=== PATIENT | male | born 1955 | race Two or more races ===

== ENCOUNTER 2023-06-19 12:45 | Inpatient (IN) | payer OTHER ==
[~2023-06-19] VITALS: Ht 180.3 cm; Wt 98.0 kg
[2023-06-19] MEDS ORDERED: LOSARTAN-HCTZ1 EAC2 PO (14:24)
[2023-06-19] MEDS ORDERED: NORVASC10 MG PO (14:24)
[2023-07-02] MEDS ORDERED: METRONIDAZOLE/SODIUM CHLORIDE 500 MG/100 ML PIGGYBACK IV ONE ×2 (07:25→07:27)
[2023-07-02] MEDS ORDERED: BUPIVACAINE HCL/PF 0.5% 30ML ML ONE (07:25)
[2023-07-02] MEDS ORDERED: CEFTRIAXONE SODIUM 2,000 MG VIAL ONE (07:26)
[2023-07-02] MEDS ORDERED: LIDOCAINE HCL/EPINEPHRINE 10MG/ML 1% 50ML IJ ONE (07:26)
[2023-07-02] MEDS ORDERED: LIDOCAINE HCL 1%/Epi 20ML VIAL IJ ONE ×2 (07:29→09:15)
[2023-07-02] MEDS ORDERED: POVIDONE-IODINE 118 ML BOTT TOP ONE ×2 (08:00→09:15)
[2023-07-02] MEDS ORDERED: METRONIDAZOLE/SODIUM CHLORIDE 200 ML IV ONE (09:15)
[2023-07-02] MEDS ORDERED: BUPIVACAINE HCL/PF 0.5% 30ML ML IU ONE (09:15)
[2023-07-02] MEDS ORDERED: CEFTRIAXONE SODIUM 2,000 MG in 0.9 % SODIUM CHLORIDE 50 ML IV ONE (09:15)
[2023-07-02] MEDS ORDERED: SUGAMMADEX SODIUM 200 MG/2 ML VIAL IV ONE ×2 (13:31→13:45)
[2023-07-02] MEDS ORDERED: RINGERS SOLUTION,LACTATED 1,000 ML IV SCH (14:15)
[2023-07-02] MEDS ORDERED: OxyCODONE HCL 5 MG TABLET (ROXICODONE) PO PRN (14:15)
[2023-07-02] MEDS ORDERED: INSULIN LISPRO 300 UNIT/3 ML UNITS SUBCUTANEO PRN (14:15)
[2023-07-02] MEDS ORDERED: DEXTROSE 50 % IN WATER 0.5 G/ML DISP.SYRIN IV PRN (14:15)
[2023-07-02] MEDS ORDERED: ONDANSETRON HCL 2 MG/ML VIAL IV PRN (14:15)
[2023-07-02] MEDS ORDERED: MORPHINE SULFATE 4 MG/ML CARTRIDGE IV PRN (14:15)
[2023-07-02 15:37] LABS: HEMATOCRIT 38.4 % (39.0-48.0); HEMOGLOBIN 13.1 g/dL (13-16.00); MEAN CELL VOLUME 83.9 fL (80.0-100.00); MEAN CORPUSCULAR HEMOGLOBIN 28.8 pg (27.00-32.0); MEAN CORPUSCULAR HGB CONC 34.3 g/dl (32.0-36.0); PLATELET COUNT 195 K/uL (150-450); RED BLOOD COUNT 4.57 M/uL (4.00-6.00); RED CELL DISTRIBUTION WIDTH 15.2 % (11.5-14.5)
[2023-07-02 16:13] LABS: ALBUMIN 3.7 gm/dL (3.4-5.0); CALCIUM 8.9 mg/dL (8.5-10.1); CREATININE SERUM 1.4 mg/dL (0.70-1.30); GFR 50.55; MAGNESIUM 1.9 mg/dL (1.8-2.4); POTASSIUM 4.07 mEq/L (3.5-5.1)
[2023-07-02] MEDS ORDERED: HYOSCYAMINE SULFATE 0.125 MG TAB.SUBL SL SCH (17:00)
[2023-07-02] MEDS ORDERED: GABAPENTIN 300 MG CAPSULE PO SCH (17:00)
[2023-07-02] MEDS ORDERED: POLYETHYLENE GLYCOL 3350 17 GM BLIST.PACK PO SCH (17:00)
[2023-07-02] MEDS ORDERED: TAMSULOSIN HCL 0.4 MG CAP PO SCH (17:00)
[2023-07-02] MEDS ORDERED: GABAPENTIN 300 MG CAPSULE PO ONE (17:09)
[2023-07-02] MEDS ORDERED: HYOSCYAMINE SULFATE 0.125 MG TAB.SUBL ONE (17:09)
[2023-07-02] MEDS ORDERED: TAMSULOSIN HCL 0.4 MG CAP PO ONE (17:09)
[2023-07-02] MEDS ORDERED: ENALAPRILAT DIHYDRATE 1.25 MG/ML VIAL IV PRN (18:30)
[2023-07-02] MEDS ORDERED: ACETAMINOPHEN 500 MG GEL..CAP PO SCH (20:00)
[2023-07-02] MEDS ORDERED: CELECOXIB 200 MG CAPSULE PO SCH (21:00)
[2023-07-02] MEDS ORDERED: FAMOTIDINE/PF 20 MG/2 ML VIAL IV PUSH SCH (21:00)
[2023-07-03 06:15] LABS: HEMATOCRIT 33.4 % (39.0-48.0); HEMOGLOBIN 11.7 g/dL (13-16.00); MEAN CELL VOLUME 82.3 fL (80.0-100.00); MEAN CORPUSCULAR HEMOGLOBIN 28.8 pg (27.00-32.0); PLATELET COUNT 153 K/uL (150-450); RED BLOOD COUNT 4.06 M/uL (4.00-6.00); RED CELL DISTRIBUTION WIDTH 15.1 % (11.5-14.5)
[2023-07-03 06:36] LABS: CALCIUM 7.9 mg/dL (8.5-10.1); CREATININE SERUM 1.04 mg/dL (0.70-1.30); GFR 71.23; MAGNESIUM 1.5 mg/dL (1.8-2.4); PHOSPHOROUS 3.2 mg/dL (2.5-4.9); POTASSIUM 3.81 mEq/L (3.5-5.1)
[2023-07-03] MEDS ORDERED: LOSARTAN/HYDROCHLOROTHIAZIDE 1 UDTAB TABLET PO SCH (09:00)
[2023-07-03] MEDS ORDERED: SOD FERRIC GLUC COMPLX/SUCROSE 62.5 MG in 0.9 % SODIUM CHLORIDE 50 ML IV SCH (09:16)
[2023-07-03] MEDS ORDERED: Cyanocobalamin/Mecobalamin 1 TAB.SL SL SCH (09:16)
[2023-07-03] MEDS ORDERED: MAGNESIUM SULFATE IN WATER 50 ML IV ONE (10:25)
[2023-07-03] MEDS ORDERED: ENOXAPARIN SODIUM 40 MG/0.4 ML SYRINGE SUBCUTANEO SCH (17:00)
[2023-07-03] MEDS ORDERED: AMLODIPINE BESYLATE 10 MG TABLET PO SCH (17:00)
[2023-07-04 06:15] LABS: HEMATOCRIT 33.2 % (39.0-48.0); HEMOGLOBIN 11.2 g/dL (13-16.00); MEAN CELL VOLUME 82.8 fL (80.0-100.00); MEAN CORPUSCULAR HGB CONC 33.9 g/dl (32.0-36.0); PLATELET COUNT 159 K/uL (150-450); RED BLOOD COUNT 4.01 M/uL (4.00-6.00); RED CELL DISTRIBUTION WIDTH 15.7 % (11.5-14.5)
[2023-07-04 06:50] LABS: CALCIUM 8.7 mg/dL (8.5-10.1); CREATININE SERUM 1.4 mg/dL (0.70-1.30); GFR 50.55; MAGNESIUM 3.1 mg/dL (1.8-2.4); PHOSPHOROUS 2.5 mg/dL (2.5-4.9); POTASSIUM 3.86 mEq/L (3.5-5.1)
[2023-07-04] MEDS ORDERED: ENOXAPARIN SODIUM 40 MG/0.4 ML SYRINGE SUBCUTANEO SCH (09:00)
[2023-07-04] MEDS ORDERED: PANTOPRAZOLE SODIUM 40 MG/VIAL VIAL IV STA (11:04)
[2023-07-04] MEDS ORDERED: PANTOPRAZOLE SODIUM 80 MG in 0.9 % SODIUM CHLORIDE 100 ML IV SCH (11:15)
[2023-07-04 12:49] LABS: HEMATOCRIT 34.9 % (39.0-48.0); HEMOGLOBIN 11.8 g/dL (13-16.00); MEAN CELL VOLUME 83.2 fL (80.0-100.00); MEAN CORPUSCULAR HEMOGLOBIN 28.2 pg (27.00-32.0); PLATELET COUNT 174 K/uL (150-450); RED BLOOD COUNT 4.19 M/uL (4.00-6.00); RED CELL DISTRIBUTION WIDTH 15.5 % (11.5-14.5)
[2023-07-04] MEDS ORDERED: 0.9 % SODIUM CHLORIDE 1,000 ML IV SCH (14:15)
[2023-07-05 06:52] LABS: HEMATOCRIT 32.4 % (39.0-48.0); HEMOGLOBIN 10.9 g/dL (13-16.00); MEAN CELL VOLUME 83.7 fL (80.0-100.00); MEAN CORPUSCULAR HEMOGLOBIN 28.2 pg (27.00-32.0); MEAN CORPUSCULAR HGB CONC 33.7 g/dl (32.0-36.0); PLATELET COUNT 175 K/uL (150-450); RED BLOOD COUNT 3.87 M/uL (4.00-6.00); RED CELL DISTRIBUTION WIDTH 15.9 % (11.5-14.5)
[2023-07-05 07:26] LABS: CALCIUM 8.3 mg/dL (8.5-10.1); CREATININE SERUM 0.92 mg/dL (0.70-1.30); GFR 82.06; MAGNESIUM 2.7 mg/dL (1.8-2.4); POTASSIUM 3.6 mEq/L (3.5-5.1)
[2023-07-05] MEDS ORDERED: AA 4.25%/CAL/LYTES/DEXT 5% 1,000 ML PERIFERAL SCH (17:00)
[2023-07-05 18:14] LABS: CHOL HDL RATIO 8.6 (0-5.0); CREATININE SERUM 0.81 mg/dL (0.70-1.30); GFR 95.05; POTASSIUM 3.41 mEq/L (3.5-5.1)
[2023-07-05] MEDS ORDERED: POTASSIUM CHLORIDE 20MEQ/100ML H2O PB IV ONE ×2 (19:45→20:06)
[2023-07-06 07:22] LABS: HEMATOCRIT 31.1 % (39.0-48.0); HEMOGLOBIN 10.6 g/dL (13-16.00); MEAN CELL VOLUME 83.7 fL (80.0-100.00); MEAN CORPUSCULAR HEMOGLOBIN 28.6 pg (27.00-32.0); MEAN CORPUSCULAR HGB CONC 34.2 g/dl (32.0-36.0); PLATELET COUNT 200 K/uL (150-450); RED BLOOD COUNT 3.71 M/uL (4.00-6.00); RED CELL DISTRIBUTION WIDTH 15.8 % (11.5-14.5)
[2023-07-06 08:01] LABS: CREATININE SERUM 0.72 mg/dL (0.70-1.30); GFR 108.89; MAGNESIUM 2.5 mg/dL (1.8-2.4); PHOSPHOROUS 2.4 mg/dL (2.5-4.9); POTASSIUM 3.7 mEq/L (3.5-5.1)
[2023-07-06] MEDS ORDERED: hydrALAZINE HCL 20 MG VIAL IV PRN (16:15)
[2023-07-08 05:29] LABS: HEMATOCRIT 32.7 % (39.0-48.0); HEMOGLOBIN 11.2 g/dL (13-16.00); MEAN CELL VOLUME 84.5 fL (80.0-100.00); MEAN CORPUSCULAR HGB CONC 34.3 g/dl (32.0-36.0); PLATELET COUNT 213 K/uL (150-450); RED BLOOD COUNT 3.87 M/uL (4.00-6.00); RED CELL DISTRIBUTION WIDTH 15.7 % (11.5-14.5)
[2023-07-08 05:43] LABS: INR 1.06; PARTIAL THROMBOPLASTIN TIME 26.5 SECONDS (22.0-34.0); PROTHROMBIN TIME 11.1 SECONDS (9.0-11.5)
[2023-07-08 06:01] LABS: ALBUMIN 2.7 gm/dL (3.4-5.0); BILIRUBIN TOTAL 2.63 mg/dL (0.3-1.2); BILIRUBIN,CONJUGATED 1.63 mg/dL (0.0-0.2); CALCIUM 8.7 mg/dL (8.5-10.1); CHOL HDL RATIO 7.2 (0-5.0); CREATININE SERUM 0.71 mg/dL (0.70-1.30); GFR 110.66; GLOBULINA 3.1 G/DL (2.4-3.5); MAGNESIUM 2.3 mg/dL (1.8-2.4); POTASSIUM 3.94 mEq/L (3.5-5.1); TOTAL PROTEIN 5.8 gm/dL (6.4-8.2)
[2023-07-08] MEDS ORDERED: LOSARTAN POTASSIUM 100 MG TABLET PO SCH (09:00)
[2023-07-08 09:34] LABS: UREA CLEARANCE 49.9 ML/MIN
[2023-07-09 08:08] LABS: ALBUMIN 2.9 gm/dL (3.4-5.0); BILIRUBIN TOTAL 2.99 mg/dL (0.3-1.2); BILIRUBIN,CONJUGATED 1.76 mg/dL (0.0-0.2); BILIRUBIN,UNCONJUGATED 1.23 mg/dL (0.0-0.6); CALCIUM 8.8 mg/dL (8.5-10.1); GFR 74.53; MAGNESIUM 2.4 mg/dL (1.8-2.4); PHOSPHOROUS 3.1 mg/dL (2.5-4.9); POTASSIUM 3.48 mEq/L (3.5-5.1); TOTAL PROTEIN 6.6 gm/dL (6.4-8.2)
[2023-07-09] MEDS ORDERED: PANTOPRAZOLE SODIUM 40 MG/VIAL VIAL IV SCH (09:00)
[2023-07-09] MEDS ORDERED: POTASSIUM CHLORIDE 20MEQ/100ML H2O PB IV ONE (10:00)
[2023-07-09] MEDS ORDERED: 0.9 % SODIUM CHLORIDE 1,000 ML IV SCH (11:15)
[2023-07-09] MEDS ORDERED: GABAPENTIN 300 MG CAPSULE PO SCH (21:00)
[2023-07-10 05:17] LABS: HEMATOCRIT 31.1 % (39.0-48.0); HEMOGLOBIN 10.6 g/dL (13-16.00); MEAN CELL VOLUME 85.7 fL (80.0-100.00); MEAN CORPUSCULAR HEMOGLOBIN 29.2 pg (27.00-32.0); PLATELET COUNT 192 K/uL (150-450); RED BLOOD COUNT 3.62 M/uL (4.00-6.00); RED CELL DISTRIBUTION WIDTH 16.2 % (11.5-14.5)
[2023-07-10 05:35] LABS: ALBUMIN 2.4 gm/dL (3.4-5.0); BILIRUBIN TOTAL 1.36 mg/dL (0.3-1.2); BILIRUBIN,CONJUGATED 0.78 mg/dL (0.0-0.2); BILIRUBIN,UNCONJUGATED 0.58 mg/dL (0.0-0.6); CALCIUM 8.1 mg/dL (8.5-10.1); CREATININE SERUM 0.74 mg/dL (0.70-1.30); GFR 105.5; MAGNESIUM 1.9 mg/dL (1.8-2.4); PHOSPHOROUS 2.7 mg/dL (2.5-4.9); POTASSIUM 3.82 mEq/L (3.5-5.1); TOTAL PROTEIN 5.4 gm/dL (6.4-8.2)
[2023-07-10] MEDS ORDERED: PIPERACILLIN/TAZOBACTAM SODIUM 3.375 GM in DEXTROSE 5 % IN WATER 100 ML IV SCH (08:25)
[2023-07-10 14:05] LABS: PH,URINE 5.5 (5.0-8.0); URINE APPEARANCE Cloudy; URINE BILIRRUBIN Small (NEGATIVE); URINE BLOOD Negative; URINE COLOR Dark Yellow; URINE GLUCOSE Negative (NEGATIVE); URINE LEUKOCYTE Negative; URINE NITRATE Negative; URINE PROTEIN 30 (NEGATIVE); URINE UROBILINOGEN 0.2 E.U./dl
[2023-07-10 14:06] LABS: URINE BACTERIA 11.3 uL (0.0-1933); URINE EPITHELIAL CELLS 6.1 uL (0.0-38.8); URINE RBC 15.2 uL (0.0-20.8); URINE WBC 2.1 uL (0.0-23.2)
[2023-07-11] MEDS ORDERED: LOPERAMIDE HCL 2 MG CAPSULE PO SCH (10:23)
[2023-07-12 06:59] LABS: HEMATOCRIT 28.7 % (39.0-48.0); HEMOGLOBIN 9.9 g/dL (13-16.00); MEAN CELL VOLUME 85.7 fL (80.0-100.00); MEAN CORPUSCULAR HEMOGLOBIN 29.5 pg (27.00-32.0); MEAN CORPUSCULAR HGB CONC 34.5 g/dl (32.0-36.0); PLATELET COUNT 165 K/uL (150-450); RED BLOOD COUNT 3.34 M/uL (4.00-6.00)
[2023-07-12 07:33] LABS: ALBUMIN 2.3 gm/dL (3.4-5.0); BILIRUBIN TOTAL 1.2 mg/dL (0.3-1.2); CALCIUM 7.9 mg/dL (8.5-10.1); CREATININE SERUM 0.87 mg/dL (0.70-1.30); GFR 87.52; GLOBULINA 3.2 G/DL (2.4-3.5); MAGNESIUM 1.9 mg/dL (1.8-2.4); PHOSPHOROUS 2.5 mg/dL (2.5-4.9); POTASSIUM 3.59 mEq/L (3.5-5.1); TOTAL PROTEIN 5.5 gm/dL (6.4-8.2)
[2023-07-12] MEDS ORDERED: SOD FERRIC GLUC COMPLX/SUCROSE 62.5 MG in 0.9 % SODIUM CHLORIDE 50 ML IV SCH (09:14)
[2023-07-13] MEDS ORDERED: DIATRIZOATE MEGLUMINE, SODIUM 30 ML BOTTLE PO ONE (10:15)
[2023-07-14] MEDS ORDERED: ACETAMINOPHEN 500 MG GEL..CAP PO PRN (14:45)
[2023-07-15 06:34] LABS: ERYTHROCYTE SEDIMENTATION RATE 72 mm/hr
[2023-07-15 06:43] LABS: HEMATOCRIT 28.5 % (39.0-48.0); HEMOGLOBIN 9.6 g/dL (13-16.00); MEAN CELL VOLUME 85.9 fL (80.0-100.00); MEAN CORPUSCULAR HEMOGLOBIN 28.9 pg (27.00-32.0); MEAN CORPUSCULAR HGB CONC 33.6 g/dl (32.0-36.0); PLATELET COUNT 228 K/uL (150-450); RED BLOOD COUNT 3.32 M/uL (4.00-6.00); RED CELL DISTRIBUTION WIDTH 16.1 % (11.5-14.5)
[2023-07-15 07:13] LABS: ALBUMIN 2.2 gm/dL (3.4-5.0); BILIRUBIN TOTAL 0.96 mg/dL (0.3-1.2); C-REACTIVE PROTEIN 26.3 MG/DL (0.00-0.29); CALCIUM 8.1 mg/dL (8.5-10.1); CREATININE SERUM 0.94 mg/dL (0.70-1.30); GFR 80.05; GLOBULINA 3.7 G/DL (2.4-3.5); POTASSIUM 3.63 mEq/L (3.5-5.1); TOTAL PROTEIN 5.9 gm/dL (6.4-8.2)
[2023-07-15] MEDS ORDERED: VANCOMYCIN HCL 1,000 MG VIAL IV SCH (10:34)
[2023-07-15 11:27] LABS: ABG PH 7.462 (7.35-7.45); ABG PO2 65.9 mmHg (80-100); ABG pCO2 34.4 mmHg (35-45); BASE EXCESS 0.8 mmol/l; Tco2 25.1 mmol/l; allen test SATISFACTORY; puncture site RADIAL RIGHT
[2023-07-15 11:28] LABS: o2 21 %
[2023-07-15] MEDS ORDERED: fentaNYL CITRATE 50 MCG/ML AMPUL IV PUSH ONE (16:00)
[2023-07-15] MEDS ORDERED: MIDAZOLAM HCL 2 MG/2 ML VIAL IV PUSH ONE (16:00)
[2023-07-16] MEDS ORDERED: VANCOMYCIN HCL 5 MG/ML REDILUIDO IV SCH (21:00)
[2023-07-17 07:00] LABS: ABG PH 7.463 (7.35-7.45); ABG PO2 68.7 mmHg (80-100); ABG pCO2 35.9 mmHg (35-45); BASE EXCESS 1.7 mmol/l; BICARBONATE 25.1 mmol/l (23-25); SaO2 94.7 %; Tco2 26.2 mmol/l; o2 21 %
[2023-07-17 07:01] LABS: allen test SATISFACTORY; puncture site RADIAL RIGHT
[2023-07-17 07:45] LABS: HEMATOCRIT 28.8 % (39.0-48.0); HEMOGLOBIN 9.7 g/dL (13-16.00); MEAN CELL VOLUME 85.4 fL (80.0-100.00); MEAN CORPUSCULAR HEMOGLOBIN 28.7 pg (27.00-32.0); MEAN CORPUSCULAR HGB CONC 33.7 g/dl (32.0-36.0); PLATELET COUNT 292 K/uL (150-450); RED BLOOD COUNT 3.38 M/uL (4.00-6.00); RED CELL DISTRIBUTION WIDTH 15.6 % (11.5-14.5)
[2023-07-17 08:30] LABS: ALBUMIN 2.1 gm/dL (3.4-5.0); BILIRUBIN TOTAL 0.66 mg/dL (0.3-1.2); C-REACTIVE PROTEIN 16.4 MG/DL (0.00-0.29); CALCIUM 8.1 mg/dL (8.5-10.1); CREATININE SERUM 0.68 mg/dL (0.70-1.30); GFR 116.31; GLOBULINA 3.7 G/DL (2.4-3.5); MAGNESIUM 2.1 mg/dL (1.8-2.4); PHOSPHOROUS 2.7 mg/dL (2.5-4.9); POTASSIUM 3.92 mEq/L (3.5-5.1); TOTAL PROTEIN 5.8 gm/dL (6.4-8.2)
[2023-07-17] MEDS ORDERED: AMINO ACIDS 1 EACH TABLET PO SCH (11:04)
[2023-07-19 06:43] LABS: HEMATOCRIT 30.9 % (39.0-48.0); HEMOGLOBIN 10.5 g/dL (13-16.00); MEAN CELL VOLUME 85.3 fL (80.0-100.00); PLATELET COUNT 357 K/uL (150-450); RED BLOOD COUNT 3.62 M/uL (4.00-6.00); RED CELL DISTRIBUTION WIDTH 15.7 % (11.5-14.5)
[2023-07-19 07:18] LABS: CALCIUM 8.7 mg/dL (8.5-10.1); CREATININE SERUM 0.88 mg/dL (0.70-1.30); GFR 86.38; PHOSPHOROUS 3.1 mg/dL (2.5-4.9); POTASSIUM 4.53 mEq/L (3.5-5.1)
[2023-07-19] MEDS ORDERED: NEURONTIN300 MG PO (15:20)
[2023-07-19] MEDS ORDERED: ACETAMINOPHEN500 M2 PO (15:20)
== END 2023-07-19 16:56 | disposition home or self-care (01) | DRG 329 ==
LOC: O/R 07-02 05:30 → SURG 07-02 05:30 → O/R 07-02 13:44 → SURG 07-02 13:52
PROVIDERS: Internal Medicine; Internal Medicine Geriatric Medicine; Internal Medicine Infectious Disease; ADMIT Surgery; ATTEND Surgery
PROC: 0DBP4ZZ Excision of Rectum, Percutaneous Endoscopic Approach (ICD-10-PCS; 2023-07-02)
PROC: 07BC4ZX Excision of Pelvis Lymphatic, Percutaneous Endoscopic Approach, Diagnostic (ICD-10-PCS; 2023-07-02)
PROC: 8E0W4CZ Robotic Assisted Procedure of Trunk Region, Percutaneous Endoscopic Approach (ICD-10-PCS; 2023-07-02)
PROC: 0D1B4Z4 Bypass Ileum to Cutaneous, Percutaneous Endoscopic Approach (ICD-10-PCS; principal; 2023-07-02 07:00)
PROC: 02HV33Z Insertion of Infusion Device into Superior Vena Cava, Percutaneous Approach (ICD-10-PCS; 2023-07-05)
PROC: 3E0436Z Introduction of Nutritional Substance into Central Vein, Percutaneous Approach (ICD-10-PCS; 2023-07-05)
PROC: BW40ZZZ Ultrasonography of Abdomen (ICD-10-PCS; 2023-07-09)
PROC: BW21YZZ Computerized Tomography (CT Scan) of Abdomen and Pelvis using Other Contrast (ICD-10-PCS; 2023-07-13)
PROC: 0W9J4ZZ Drainage of Pelvic Cavity, Percutaneous Endoscopic Approach (ICD-10-PCS; 2023-07-15)
DX: C20 Malignant neoplasm of rectum (principal); K68.19 Other retroperitoneal abscess; D62 Acute posthemorrhagic anemia; K62.5 Hemorrhage of anus and rectum; J90 Pleural effusion, not elsewhere classified; K56.609 Unspecified intestinal obstruction, unspecified as to partial versus complete obstruction; R11.10 Vomiting, unspecified; K21.9 Gastro-esophageal reflux disease without esophagitis; B95.2 Enterococcus as the cause of diseases classified elsewhere
CPT/HCPCS: 44207; 44187; 38571; 49406; S2900

== ENCOUNTER 2023-07-23 12:44 | Inpatient (IN) | payer OTHER ==
[~2023-07-23] VITALS: Ht 172.7 cm; Wt 86.2 kg
[~2023-07-23 12:44] MED LIST: ACETAMINOPHEN500 M2 PO; LOSARTAN-HCTZ1 EAC2 PO; NEURONTIN300 MG PO; NORVASC10 MG PO
[2023-07-23] MEDS ORDERED: 0.9 % SODIUM CHLORIDE 1,000 ML IV STA (14:43)
[2023-07-23 15:45] LABS: HEMATOCRIT 33.9 % (39.0-48.0); HEMOGLOBIN 11.5 g/dL (13-16.00); MEAN CELL VOLUME 86.3 fL (80.0-100.00); MEAN CORPUSCULAR HEMOGLOBIN 29.2 pg (27.00-32.0); MEAN CORPUSCULAR HGB CONC 33.8 g/dl (32.0-36.0); PLATELET COUNT 284 K/uL (150-450); RED BLOOD COUNT 3.92 M/uL (4.00-6.00)
[2023-07-23] MEDS ORDERED: 0.9 % SODIUM CHLORIDE 1,000 ML IV SCH (16:00)
[2023-07-23] MEDS ORDERED: AMPICILLIN SODIUM/SULBACTAM NA 3,000 MG in 0.9 % SODIUM CHLORIDE 100 ML IV SCH (16:04)
[2023-07-23] MEDS ORDERED: SOD FERRIC GLUC COMPLX/SUCROSE 62.5 MG in 0.9 % SODIUM CHLORIDE 50 ML IV SCH (16:06)
[2023-07-23] MEDS ORDERED: MORPHINE SULFATE 4 MG/ML VIAL IV PRN (16:15)
[2023-07-23] MEDS ORDERED: ENALAPRILAT DIHYDRATE 1.25 MG/ML VIAL IV PRN (16:15)
[2023-07-23 16:24] LABS: PH,URINE 5.5 (5.0-8.0); URINE APPEARANCE Clear; URINE BILIRRUBIN Small (NEGATIVE); URINE BLOOD Negative; URINE COLOR Dark Yellow; URINE GLUCOSE Negative (NEGATIVE); URINE LEUKOCYTE Negative; URINE NITRATE Negative; URINE PROTEIN 30 (NEGATIVE); URINE UROBILINOGEN 0.2 E.U./dl
[2023-07-23 16:27] LABS: URINE BACTERIA 12.5 uL (0.0-1933); URINE EPITHELIAL CELLS 1.6 uL (0.0-38.8); URINE RBC 5.6 uL (0.0-20.8)
[2023-07-23 16:28] LABS: ALBUMIN 2.7 gm/dL (3.4-5.0); BILIRUBIN TOTAL 0.72 mg/dL (0.3-1.2); BILIRUBIN,CONJUGATED 0.36 mg/dL (0.0-0.2); BILIRUBIN,UNCONJUGATED 0.36 mg/dL (0.0-0.6); CALCIUM 9.3 mg/dL (8.5-10.1); CREATININE SERUM 1.05 mg/dL (0.70-1.30); GFR 70.45; POTASSIUM 4.14 mEq/L (3.5-5.1)
[2023-07-23 16:35] LABS: URINE WBC 0.4 uL (0.0-23.2)
[2023-07-23] MEDS ORDERED: ENOXAPARIN SODIUM 40 MG/0.4 ML SYRINGE SUBCUTANEO SCH (17:00)
[2023-07-23] MEDS ORDERED: FAMOTIDINE/PF 20 MG/2 ML VIAL IV SCH (21:00)
[2023-07-24 06:47] LABS: HEMATOCRIT 29.9 % (39.0-48.0); HEMOGLOBIN 10.1 g/dL (13-16.00); MEAN CELL VOLUME 85.3 fL (80.0-100.00); MEAN CORPUSCULAR HEMOGLOBIN 28.8 pg (27.00-32.0); MEAN CORPUSCULAR HGB CONC 33.7 g/dl (32.0-36.0); PLATELET COUNT 219 K/uL (150-450); RED CELL DISTRIBUTION WIDTH 16.6 % (11.5-14.5)
[2023-07-24 07:21] LABS: ALBUMIN 2.5 gm/dL (3.4-5.0); BILIRUBIN TOTAL 0.79 mg/dL (0.3-1.2); CALCIUM 8.5 mg/dL (8.5-10.1); CREATININE SERUM 0.83 mg/dL (0.70-1.30); GFR 92.41; MAGNESIUM 1.9 mg/dL (1.8-2.4); PHOSPHOROUS 3.3 mg/dL (2.5-4.9); POTASSIUM 4.52 mEq/L (3.5-5.1); TOTAL PROTEIN 6.5 gm/dL (6.4-8.2)
[2023-07-24 07:22] LABS: C-REACTIVE PROTEIN 8.5 MG/DL (0.00-0.29)
[2023-07-24 07:25] LABS: ERYTHROCYTE SEDIMENTATION RATE 72 mm/hr
[2023-07-24] MEDS ORDERED: KETOROLAC TROMETHAMINE 30 MG VIAL IV PRN (13:00)
[2023-07-24] MEDS ORDERED: METRONIDAZOLE/SODIUM CHLORIDE 100 ML IV SCH (17:00)
[2023-07-25] MEDS ORDERED: HYOSCYAMINE SULFATE 0.125 MG TAB.SUBL SL SCH (10:20)
[2023-07-25] MEDS ORDERED: CIPROFLOXACIN IN 5 % DEXTROSE 200 ML IV SCH (17:00)
[2023-07-25] MEDS ORDERED: KETOROLAC TROMETHAMINE 30 MG VIAL IV SCH (21:00)
[2023-07-26 06:14] LABS: HEMOGLOBIN 10.1 g/dL (13-16.00); MEAN CORPUSCULAR HEMOGLOBIN 28.9 pg (27.00-32.0); MEAN CORPUSCULAR HGB CONC 33.6 g/dl (32.0-36.0); RED BLOOD COUNT 3.49 M/uL (4.00-6.00); RED CELL DISTRIBUTION WIDTH 15.9 % (11.5-14.5)
[2023-07-26 06:29] LABS: PLATELET COUNT 225 K/uL (150-450)
[2023-07-26 06:38] LABS: CALCIUM 8.5 mg/dL (8.5-10.1); CREATININE SERUM 0.88 mg/dL (0.70-1.30); GFR 86.38; PHOSPHOROUS 3.7 mg/dL (2.5-4.9); POTASSIUM 4.51 mEq/L (3.5-5.1)
[2023-07-26] MEDS ORDERED: PRILOSEC OTC20 MG PO (13:37)
[2023-07-26] MEDS ORDERED: DICLOFENAC POTA50 MG PO (13:37)
[2023-07-26] MEDS ORDERED: CIPRO500 MG PO (13:37)
== END 2023-07-26 16:17 | disposition home or self-care (01) | DRG 862 ==
LOC: ER 12:45 → MEDI 17:17 → SEC-K 17:17 → MEDI 18:43
PROVIDERS: General Practice; Internal Medicine Geriatric Medicine; ADMIT Surgery; ATTEND Surgery
PROC: BW21ZZZ Computerized Tomography (CT Scan) of Abdomen and Pelvis (ICD-10-PCS; principal; 2023-07-23)
DX: T81.42XA Infection following a procedure, deep incisional surgical site, initial encounter (principal); K65.1 Peritoneal abscess; C20 Malignant neoplasm of rectum; C78.7 Secondary malignant neoplasm of liver and intrahepatic bile duct; C78.01 Secondary malignant neoplasm of right lung; C78.02 Secondary malignant neoplasm of left lung; D64.9 Anemia, unspecified; I10 Essential (primary) hypertension; N40.0 Benign prostatic hyperplasia without lower urinary tract symptoms

== ENCOUNTER 2023-08-08 14:13 | Inpatient (IN) | payer OTHER ==
[~2023-08-08] VITALS: Ht 180.3 cm; Wt 78.9 kg
[~2023-08-08 14:13] MED LIST changes: +CIPRO500 MG PO; +DICLOFENAC POTA50 MG PO; +PRILOSEC OTC20 MG PO
[2023-08-08] MEDS ORDERED: DEXTROSE 5 % AND 0.9 % NACL 500 ML IV STA (15:07)
[2023-08-08] MEDS ORDERED: ONDANSETRON HCL 2 MG/ML VIAL IV STA (15:08)
[2023-08-08] MEDS ORDERED: FAMOTIDINE/PF 20 MG/2 ML VIAL IV PUSH STA (15:08)
[2023-08-08 15:35] LABS: HEMATOCRIT 35.1 % (39.0-48.0); HEMOGLOBIN 11.6 g/dL (13-16.00); MEAN CORPUSCULAR HEMOGLOBIN 27.8 pg (27.00-32.0); MEAN CORPUSCULAR HGB CONC 33.1 g/dl (32.0-36.0); PLATELET COUNT 349 K/uL (150-450); RED BLOOD COUNT 4.18 M/uL (4.00-6.00); RED CELL DISTRIBUTION WIDTH 16.1 % (11.5-14.5)
[2023-08-08 15:56] LABS: URINE APPEARANCE Cloudy; URINE BILIRRUBIN Negative (NEGATIVE); URINE BLOOD Trace; URINE COLOR Dark Yellow; URINE GLUCOSE Negative (NEGATIVE); URINE LEUKOCYTE Negative; URINE NITRATE Negative; URINE UROBILINOGEN 0.2 E.U./dl
[2023-08-08 15:59] LABS: URINE EPITHELIAL CELLS 18.3 uL (0.0-38.8)
[2023-08-08 16:01] LABS: ALBUMIN 3.2 gm/dL (3.4-5.0); BILIRUBIN TOTAL 0.47 mg/dL (0.3-1.2); CALCIUM 9.8 mg/dL (8.5-10.1); CREATININE SERUM 3.59 mg/dL (0.70-1.30); GFR 17.05; GLOBULINA 6.2 G/DL (2.4-3.5); POTASSIUM 5.82 mEq/L (3.5-5.1); TOTAL PROTEIN 9.4 gm/dL (6.4-8.2)
[2023-08-08 16:23] LABS: C-REACTIVE PROTEIN 3.2 MG/DL (0.00-0.29)
[2023-08-08 16:44] LABS: URINE PROTEIN 100 (NEGATIVE)
[2023-08-08 16:46] LABS: URINE CRYSTALS FEW /HPF
[2023-08-08] MEDS ORDERED: DEXTROSE 5 % AND 0.9 % NACL 1,000 ML IV SCH (20:45)
[2023-08-08] MEDS ORDERED: ENOXAPARIN SODIUM 30 MG/0.3 ML SYRINGE SUBCUTANEO SCH (20:49)
[2023-08-08] MEDS ORDERED: EMOLLIENT COMBINATION NO.92 2.5 OZ BOTTLE TOP SCH (20:54)
[2023-08-08] MEDS ORDERED: CIPROFLOXACIN IN 5 % DEXTROSE 200 ML IV SCH (20:55)
[2023-08-08] MEDS ORDERED: METRONIDAZOLE/SODIUM CHLORIDE 100 ML IV SCH (21:00)
[2023-08-08] MEDS ORDERED: hydrALAZINE HCL 20 MG VIAL IV PRN (21:00)
[2023-08-08] MEDS ORDERED: FAMOTIDINE/PF 20 MG/2 ML VIAL IV SCH (21:00)
[2023-08-09] MEDS ORDERED: EMOLLIENT COMBINATION NO.92 2.5 OZ BOTTLE TOP SCH (09:00)
[2023-08-09] MEDS ORDERED: FLUDROCORTISONE ACETATE 0.1 MG TABLET PO SCH (09:00)
[2023-08-09 10:50] LABS: HEMATOCRIT 32.8 % (39.0-48.0); HEMOGLOBIN 11.1 g/dL (13-16.00); MEAN CELL VOLUME 84.6 fL (80.0-100.00); MEAN CORPUSCULAR HEMOGLOBIN 28.6 pg (27.00-32.0); MEAN CORPUSCULAR HGB CONC 33.8 g/dl (32.0-36.0); PLATELET COUNT 282 K/uL (150-450); RED BLOOD COUNT 3.88 M/uL (4.00-6.00)
[2023-08-09] MEDS ORDERED: TRAMADOL HCL 50 MG TABLET PO PRN (11:15)
[2023-08-09 11:34] LABS: ALBUMIN 2.7 gm/dL (3.4-5.0); BILIRUBIN TOTAL 0.52 mg/dL (0.3-1.2); CALCIUM 8.9 mg/dL (8.5-10.1); CREATININE SERUM 1.92 mg/dL (0.70-1.30); GFR 35.11; GLOBULINA 4.8 G/DL (2.4-3.5); MAGNESIUM 2.6 mg/dL (1.8-2.4); TOTAL PROTEIN 7.5 gm/dL (6.4-8.2); TSH 1.52 uIU/mL (0.358-3.74)
[2023-08-09 11:39] LABS: ERYTHROCYTE SEDIMENTATION RATE 75 mm/hr
[2023-08-09 12:18] LABS: C-REACTIVE PROTEIN 3.15 MG/DL (0.00-0.29)
[2023-08-09 12:19] LABS: POTASSIUM 6.12 mEq/L (3.5-5.1)
[2023-08-09] MEDS ORDERED: INSULIN REGULAR, HUMAN 1,000 UNIT/10 ML UNITS IV STA (13:29)
[2023-08-09] MEDS ORDERED: DEXTROSE 5 % IN WATER 500 ML IV SCH (13:30)
[2023-08-09] MEDS ORDERED: CALCIUM GLUCONATE 100 MG/ML VIAL IV STA (13:37)
[2023-08-09] MEDS ORDERED: SODIUM POLYSTYRENE SULFONATE 15 G/4 TSP TSP PO STA (13:39)
[2023-08-10 07:30] LABS: HEMATOCRIT 32.4 % (39.0-48.0); HEMOGLOBIN 10.9 g/dL (13-16.00); MEAN CELL VOLUME 84.1 fL (80.0-100.00); MEAN CORPUSCULAR HEMOGLOBIN 28.2 pg (27.00-32.0); MEAN CORPUSCULAR HGB CONC 33.6 g/dl (32.0-36.0); PLATELET COUNT 283 K/uL (150-450); RED BLOOD COUNT 3.86 M/uL (4.00-6.00); RED CELL DISTRIBUTION WIDTH 16.2 % (11.5-14.5)
[2023-08-10 07:49] LABS: CALCIUM 8.8 mg/dL (8.5-10.1); CREATININE SERUM 1.52 mg/dL (0.70-1.30); GFR 45.97; PHOSPHOROUS 3.7 mg/dL (2.5-4.9); POTASSIUM 5.78 mEq/L (3.5-5.1)
[2023-08-10] MEDS ORDERED: SODIUM POLYSTYRENE SULFONATE 15 G/4 TSP TSP PO ONE (12:45)
[2023-08-10] MEDS ORDERED: LOPERAMIDE HCL 2 MG CAPSULE PO PRN (16:45)
[2023-08-11 07:57] LABS: ALBUMIN 2.5 gm/dL (3.4-5.0); CALCIUM 8.6 mg/dL (8.5-10.1); CREATININE SERUM 1.05 mg/dL (0.70-1.30); GFR 70.45; PHOSPHOROUS 2.9 mg/dL (2.5-4.9); POTASSIUM 5.16 mEq/L (3.5-5.1); URIC ACID 5.7 mg/dL (3.5-8.5)
[2023-08-12] MEDS ORDERED: 0.9 % SODIUM CHLORIDE 1,000 ML IV SCH (11:45)
[2023-08-13 06:59] LABS: HEMATOCRIT 28.1 % (39.0-48.0); HEMOGLOBIN 9.6 g/dL (13-16.00); MEAN CELL VOLUME 84.5 fL (80.0-100.00); MEAN CORPUSCULAR HGB CONC 34.3 g/dl (32.0-36.0); PLATELET COUNT 223 K/uL (150-450); RED BLOOD COUNT 3.32 M/uL (4.00-6.00); RED CELL DISTRIBUTION WIDTH 16.2 % (11.5-14.5)
[2023-08-13 07:10] LABS: CALCIUM 8.1 mg/dL (8.5-10.1); CREATININE SERUM 0.88 mg/dL (0.70-1.30); GFR 86.38; MAGNESIUM 1.5 mg/dL (1.8-2.4); PHOSPHOROUS 2.7 mg/dL (2.5-4.9); POTASSIUM 4.27 mEq/L (3.5-5.1)
[2023-08-13] MEDS ORDERED: SOD FERRIC GLUC COMPLX/SUCROSE 62.5 MG in 0.9 % SODIUM CHLORIDE 50 ML IV SCH (11:36)
[2023-08-13] MEDS ORDERED: Cyanocobalamin/Mecobalamin 1 TAB.SL SL SCH (11:36)
[2023-08-13] MEDS ORDERED: MAGNESIUM SULFATE IN WATER 50 ML IV ONE (11:45)
[2023-08-13] MEDS ORDERED: ENOXAPARIN SODIUM 40 MG/0.4 ML SYRINGE SUBCUTANEO SCH (17:00)
[2023-08-13] MEDS ORDERED: FAMOtidine 20 MG TABLET PO SCH (21:00)
[2023-08-14] MEDS ORDERED: FentaNYL CITRATE/PF 50MCG/ML 2ML VIAL IJ ONE (10:15)
[2023-08-14] MEDS ORDERED: MIDAZOLAM HCL 2 MG/2 ML VIAL IV ONE (10:15)
[2023-08-14] MEDS ORDERED: ABANEU-SL TABL1 EACH SL (14:29)
[2023-08-14] MEDS ORDERED: FUSION PLUS CA1 EACH PO (14:29)
[2023-08-14] MEDS ORDERED: CIPRO500 MG PO (14:29)
[2023-08-14] MEDS ORDERED: PROTONIX40 MG PO (14:29)
[2023-08-14] MEDS ORDERED: METRONIDAZOLE500 MG PO (14:29)
== END 2023-08-14 18:31 | disposition home or self-care (01) | DRG 683 ==
LOC: ER 14:14 → SURG 21:08 → SURH 21:08 → SURG 08-09 10:26
PROVIDERS: Emergency Medicine; Internal Medicine Nephrology; ADMIT Internal Medicine Geriatric Medicine; ATTEND Internal Medicine Geriatric Medicine
PROC: 02HV33Z Insertion of Infusion Device into Superior Vena Cava, Percutaneous Approach (ICD-10-PCS; 2023-08-09)
PROC: BT4JZZZ Ultrasonography of Kidneys and Bladder (ICD-10-PCS; 2023-08-09)
PROC: 0DB68ZX Excision of Stomach, Via Natural or Artificial Opening Endoscopic, Diagnostic (ICD-10-PCS; principal; 2023-08-14)
PROC: 0DB78ZX Excision of Stomach, Pylorus, Via Natural or Artificial Opening Endoscopic, Diagnostic (ICD-10-PCS; 2023-08-14)
DX: N17.9 Acute kidney failure, unspecified (principal); C18.9 Malignant neoplasm of colon, unspecified; C78.7 Secondary malignant neoplasm of liver and intrahepatic bile duct; C78.00 Secondary malignant neoplasm of unspecified lung; E86.0 Dehydration; K29.50 Unspecified chronic gastritis without bleeding; E87.5 Hyperkalemia; F43.20 Adjustment disorder, unspecified

== ENCOUNTER 2023-11-10 12:22 | Inpatient (IN) | payer OTHER ==
[~2023-11-10] VITALS: Ht 180.3 cm; Wt 73.5 kg
[~2023-11-10 12:22] MED LIST changes: +ABANEU-SL TABL1 EACH SL; +FUSION PLUS CA1 EACH PO; +METRONIDAZOLE500 MG PO; +PROTONIX40 MG PO
[2023-11-10] MEDS ORDERED: 0.9 % SODIUM CHLORIDE 1,000 ML IV STA (13:05)
[2023-11-10] MEDS ORDERED: MORPHINE SULFATE 4 MG/ML VIAL IV STA (13:06)
[2023-11-10 13:53] LABS: HEMOGLOBIN 9.4 g/dL (13-16.00); MEAN CELL VOLUME 80.6 fL (80.0-100.00); MEAN CORPUSCULAR HEMOGLOBIN 27.2 pg (27.00-32.0); MEAN CORPUSCULAR HGB CONC 33.7 g/dl (32.0-36.0); PLATELET COUNT 291 K/uL (150-450); RED BLOOD COUNT 3.47 M/uL (4.00-6.00); RED CELL DISTRIBUTION WIDTH 16.3 % (11.5-14.5)
[2023-11-10 14:07] LABS: PH,URINE 5.5 (5.0-8.0); URINE APPEARANCE Clear; URINE BILIRRUBIN Negative (NEGATIVE); URINE BLOOD Negative; URINE COLOR Yellow; URINE GLUCOSE Negative (NEGATIVE); URINE LEUKOCYTE Negative; URINE NITRATE Negative; URINE UROBILINOGEN 0.2 E.U./dl
[2023-11-10 14:08] LABS: URINE BACTERIA 59.2 uL (0.0-1933); URINE EPITHELIAL CELLS 11.1 uL (0.0-38.8); URINE WBC 7.4 uL (0.0-23.2)
[2023-11-10 14:09] LABS: ALBUMIN 2.6 gm/dL (3.4-5.0); BILIRUBIN TOTAL 0.54 mg/dL (0.3-1.2); BILIRUBIN,CONJUGATED 0.22 mg/dL (0.0-0.2); BILIRUBIN,UNCONJUGATED 0.32 mg/dL (0.0-0.6); CALCIUM 9.3 mg/dL (8.5-10.1); CREATININE SERUM 2.02 mg/dL (0.70-1.30); GFR 33.11; POTASSIUM 4.07 mEq/L (3.5-5.1); TOTAL PROTEIN 8.8 gm/dL (6.4-8.2)
[2023-11-10 14:21] LABS: URINE PROTEIN 100 (NEGATIVE); URINE RBC 1.5 uL (0.0-20.8)
[2023-11-10] MEDS ORDERED: PIPERACILLIN/TAZOBACTAM SODIUM 3.375 GM VIAL IV STA (15:17)
[2023-11-10] MEDS ORDERED: METRONIDAZOLE/SODIUM CHLORIDE 100 ML IV SCH (17:39)
[2023-11-10] MEDS ORDERED: CIPROFLOXACIN IN 5 % DEXTROSE 100 ML IV SCH (17:39)
[2023-11-10] MEDS ORDERED: ONDANSETRON HCL 2 MG/ML VIAL IV SCH (18:00)
[2023-11-10] MEDS ORDERED: MORPHINE SULFATE 4 MG/ML CARTRIDGE IV SCH (18:00)
[2023-11-10 18:42] LABS: ABG PH 7.428 (7.35-7.45); ABG PO2 96.2 mmHg (80-100); ABG pCO2 23.4 mmHg (35-45); BICARBONATE 15.1 mmol/l (23-25); SaO2 97.5 %; Tco2 15.8 mmol/l; allen test SATISFACTORY; o2 21 %; puncture site RADIAL RIGHT
[2023-11-10 19:36] LABS: INR 1.27; PARTIAL THROMBOPLASTIN TIME 29.8 SECONDS (22.0-34.0); PROTHROMBIN TIME 13.1 SECONDS (9.0-11.5)
[2023-11-11 06:21] LABS: HEMATOCRIT 25.9 % (39.0-48.0); MEAN CELL VOLUME 80.5 fL (80.0-100.00); MEAN CORPUSCULAR HEMOGLOBIN 27.4 pg (27.00-32.0); MEAN CORPUSCULAR HGB CONC 34.2 g/dl (32.0-36.0); PLATELET COUNT 229 K/uL (150-450); RED BLOOD COUNT 3.21 M/uL (4.00-6.00); RED CELL DISTRIBUTION WIDTH 16.4 % (11.5-14.5)
[2023-11-11 06:22] LABS: HEMOGLOBIN 8.8 g/dL (13-16.00)
[2023-11-11 07:00] LABS: ALBUMIN 2.5 gm/dL (3.4-5.0); BILIRUBIN TOTAL 0.61 mg/dL (0.3-1.2); CALCIUM 8.8 mg/dL (8.5-10.1); CREATININE SERUM 2.07 mg/dL (0.70-1.30); GFR 32.19; GLOBULINA 5.1 G/DL (2.4-3.5); POTASSIUM 4.13 mEq/L (3.5-5.1); TOTAL PROTEIN 7.6 gm/dL (6.4-8.2)
[2023-11-11 07:04] LABS: C-REACTIVE PROTEIN 18.8 MG/DL (0.00-0.29)
[2023-11-11] MEDS ORDERED: PANTOPRAZOLE SODIUM 40 MG/VIAL VIAL IV SCH (07:30)
[2023-11-11] MEDS ORDERED: SOD FERRIC GLUC COMPLX/SUCROSE 62.5 MG in 0.9 % SODIUM CHLORIDE 50 ML IV SCH (09:00)
[2023-11-11] MEDS ORDERED: Cyanocobalamin/Mecobalamin 1 TAB.SL SL SCH (09:00)
[2023-11-11] MEDS ORDERED: ENOXAPARIN SODIUM 30 MG/0.3 ML SYRINGE SUBCUTANEO SCH (09:00)
[2023-11-11] MEDS ORDERED: 0.9 % SODIUM CHLORIDE 1,000 ML IV SCH (11:30)
[2023-11-11] MEDS ORDERED: FUROsemide 20 MG/2 ML VIAL IV SCH (13:15)
[2023-11-11] MEDS ORDERED: CIPROFLOXACIN IN 5 % DEXTROSE 100 ML IV SCH (21:00)
[2023-11-12 05:36] LABS: CALCIUM 8.4 mg/dL (8.5-10.1); CREATININE SERUM 1.96 mg/dL (0.70-1.30); GFR 34.28; MAGNESIUM 1.9 mg/dL (1.8-2.4); POTASSIUM 3.73 mEq/L (3.5-5.1)
[2023-11-12 11:45] LABS: HEMATOCRIT 29.9 % (39.0-48.0); HEMOGLOBIN 10.1 g/dL (13-16.00); MEAN CELL VOLUME 82.7 fL (80.0-100.00); MEAN CORPUSCULAR HEMOGLOBIN 28.1 pg (27.00-32.0); MEAN CORPUSCULAR HGB CONC 33.9 g/dl (32.0-36.0); PLATELET COUNT 207 K/uL (150-450); RED BLOOD COUNT 3.61 M/uL (4.00-6.00); RED CELL DISTRIBUTION WIDTH 16.4 % (11.5-14.5)
[2023-11-12] MEDS ORDERED: fentaNYL CITRATE 50 MCG/ML AMPUL IV PUSH NR (16:15)
[2023-11-12] MEDS ORDERED: MIDAZOLAM HCL 2 MG/2 ML VIAL IV PUSH NR (16:15)
[2023-11-13 08:00] LABS: HEMATOCRIT 28.6 % (39.0-48.0); HEMOGLOBIN 9.9 g/dL (13-16.00); MEAN CELL VOLUME 82.1 fL (80.0-100.00); MEAN CORPUSCULAR HEMOGLOBIN 28.5 pg (27.00-32.0); MEAN CORPUSCULAR HGB CONC 34.7 g/dl (32.0-36.0); PLATELET COUNT 207 K/uL (150-450); RED BLOOD COUNT 3.48 M/uL (4.00-6.00); RED CELL DISTRIBUTION WIDTH 16.1 % (11.5-14.5)
[2023-11-13 08:53] LABS: CALCIUM 8.4 mg/dL (8.5-10.1); CREATININE SERUM 1.87 mg/dL (0.70-1.30); GFR 36.19; MAGNESIUM 1.8 mg/dL (1.8-2.4); PHOSPHOROUS 4.2 mg/dL (2.5-4.9); POTASSIUM 3.5 mEq/L (3.5-5.1)
[2023-11-13] MEDS ORDERED: GABAPENTIN 100 MG CAPSULE PO STA (16:30)
[2023-11-13] MEDS ORDERED: MORPHINE SULFATE 2 MG/ML CARTRIDGE IV PRN (18:00)
[2023-11-13] MEDS ORDERED: CIPROFLOXACIN IN 5 % DEXTROSE 200 ML IV SCH (21:00)
[2023-11-14] MEDS ORDERED: GABAPENTIN 100 MG CAPSULE PO SCH (01:00)
[2023-11-14] MEDS ORDERED: levoFLOXacin IN DEXTROSE 5 % 150 ML IV SCH (17:00)
[2023-11-15 07:22] LABS: HEMATOCRIT 29.3 % (39.0-48.0); MEAN CELL VOLUME 81.9 fL (80.0-100.00); MEAN CORPUSCULAR HEMOGLOBIN 28.1 pg (27.00-32.0); MEAN CORPUSCULAR HGB CONC 34.3 g/dl (32.0-36.0); PLATELET COUNT 195 K/uL (150-450); RED BLOOD COUNT 3.58 M/uL (4.00-6.00); RED CELL DISTRIBUTION WIDTH 15.9 % (11.5-14.5)
[2023-11-15 08:03] LABS: CREATININE SERUM 1.31 mg/dL (0.70-1.30); GFR 54.58; PHOSPHOROUS 2.4 mg/dL (2.5-4.9); POTASSIUM 3.43 mEq/L (3.5-5.1)
[2023-11-15 08:26] LABS: MAGNESIUM 1.3 mg/dL (1.8-2.4)
[2023-11-15] MEDS ORDERED: POTASSIUM CHLORIDE 20MEQ/100ML H2O PB IV NR (08:45)
[2023-11-15] MEDS ORDERED: POTASSIUM PHOS,M-BASIC-D-BASIC 3 MM/ML VIAL IV NR (08:45)
[2023-11-15] MEDS ORDERED: MAGNESIUM SULFATE IN WATER 50 ML IV NR (08:45)
[2023-11-15] MEDS ORDERED: MAGNESIUM CHLORIDE 70 MG TABLET.DR PO SCH (09:00)
[2023-11-15] MEDS ORDERED: SODIUM CHLORIDE 0.45 % 1,000 ML IV SCH (19:00)
[2023-11-15] MEDS ORDERED: GABAPENTIN 300 MG CAPSULE PO SCH (21:00)
[2023-11-16 08:53] LABS: CREATININE SERUM 1.17 mg/dL (0.70-1.30); GFR 62.18; PHOSPHOROUS 2.4 mg/dL (2.5-4.9); POTASSIUM 3.6 mEq/L (3.5-5.1)
[2023-11-16 09:10] LABS: MAGNESIUM 1.2 mg/dL (1.8-2.4)
[2023-11-16] MEDS ORDERED: POTASSIUM PHOS,M-BASIC-D-BASIC 3 MM/ML VIAL IV NR (11:30)
[2023-11-16] MEDS ORDERED: MAGNESIUM SULFATE IN WATER 50 ML IV NR (11:30)
[2023-11-16] MEDS ORDERED: GABAPENTIN 100 MG CAPSULE PO SCH (13:00)
[2023-11-16] MEDS ORDERED: 0.9 % SODIUM CHLORIDE 1,000 ML IV SCH (18:30)
[2023-11-17] MEDS ORDERED: MAGNESIUM SULFATE IN WATER 2 GM/50 ML PIGGYBAG IV NR (10:00)
[2023-11-17] MEDS ORDERED: POTASSIUM PHOS,M-BASIC-D-BASIC 15 MM in 0.9 % SODIUM CHLORIDE 250 ML IV NR (10:00)
[2023-11-17] MEDS ORDERED: INTESTINEX680 M2 PO (12:14)
[2023-11-17] MEDS ORDERED: ABANEU-SL TABL1 EACH SL (12:14)
[2023-11-17] MEDS ORDERED: LEVOFLOXACIN750 MG PO (12:14)
[2023-11-17] MEDS ORDERED: FUSION PLUS CA1 EACH PO (12:14)
[2023-11-17] MEDS ORDERED: MAGNESIUM CHLOR70 MG PO (12:14)
[2023-11-17] MEDS ORDERED: GABAPENTIN100 MG PO (12:14)
== END 2023-11-17 14:19 | disposition home or self-care (01) | DRG 683 ==
LOC: ER 12:22 → MEDI 18:21 → MEDJ 11-12 22:14
PROVIDERS: General Practice; Internal Medicine; ADMIT Internal Medicine Geriatric Medicine; ATTEND Internal Medicine Geriatric Medicine
PROC: BW21ZZZ Computerized Tomography (CT Scan) of Abdomen and Pelvis (ICD-10-PCS; 2023-11-10)
PROC: 30233N1 Transfusion of Nonautologous Red Blood Cells into Peripheral Vein, Percutaneous Approach (ICD-10-PCS; 2023-11-11)
PROC: 0T9430Z Drainage of Left Kidney Pelvis with Drainage Device, Percutaneous Approach (ICD-10-PCS; principal; 2023-11-12)
PROC: 0T9330Z Drainage of Right Kidney Pelvis with Drainage Device, Percutaneous Approach (ICD-10-PCS; 2023-11-12)
DX: N17.9 Acute kidney failure, unspecified (principal); C78.01 Secondary malignant neoplasm of right lung; C78.7 Secondary malignant neoplasm of liver and intrahepatic bile duct; C78.5 Secondary malignant neoplasm of large intestine and rectum; C79.19 Secondary malignant neoplasm of other urinary organs; N39.0 Urinary tract infection, site not specified; N13.39 Other hydronephrosis; E86.0 Dehydration; D64.89 Other specified anemias; D63.0 Anemia in neoplastic disease; G89.3 Neoplasm related pain (acute) (chronic); R10.9 Unspecified abdominal pain; I10 Essential (primary) hypertension; Z93.2 Ileostomy status; B96.89 Other specified bacterial agents as the cause of diseases classified elsewhere

== ENCOUNTER 2023-12-09 08:31 | Inpatient (IN) | payer OTHER ==
[~2023-12-09] VITALS: Ht 180.3 cm; Wt 68.0 kg
[~2023-12-09 08:31] MED LIST changes: +GABAPENTIN100 MG PO; +INTESTINEX680 M2 PO; +LEVOFLOXACIN750 MG PO; +MAGNESIUM CHLOR70 MG PO
[2023-12-09] MEDS ORDERED: 0.9 % SODIUM CHLORIDE 1,000 ML IV STA (10:05)
[2023-12-09] MEDS ORDERED: ONDANSETRON HCL 2 MG/ML VIAL IV ONE (10:15)
[2023-12-09 10:37] LABS: ABG PH 7.385 (7.35-7.45); ABG PO2 94.7 mmHg (80-100); BASE EXCESS -11.8 mmol/l; BICARBONATE 10.2 mmol/l (23-25); SaO2 96.9 %; Tco2 10.8 mmol/l
[2023-12-09 10:51] LABS: HEMATOCRIT 31.8 % (39.0-48.0); HEMOGLOBIN 10.7 g/dL (13-16.00); MEAN CELL VOLUME 81.3 fL (80.0-100.00); MEAN CORPUSCULAR HEMOGLOBIN 27.3 pg (27.00-32.0); MEAN CORPUSCULAR HGB CONC 33.6 g/dl (32.0-36.0); PLATELET COUNT 373 K/uL (150-450); RED BLOOD COUNT 3.91 M/uL (4.00-6.00); RED CELL DISTRIBUTION WIDTH 17.1 % (11.5-14.5)
[2023-12-09 11:04] LABS: ABG pCO2 17.5 mmHg (35-45); allen test SATISFACTORY; o2 21 %; puncture site RADIAL RIGHT
[2023-12-09 11:05] LABS: INR 1.26; PARTIAL THROMBOPLASTIN TIME 30.3 SECONDS (22.0-34.0)
[2023-12-09 11:16] LABS: ALBUMIN 2.5 gm/dL (3.4-5.0); BILIRUBIN TOTAL 1.02 mg/dL (0.3-1.2); BILIRUBIN,CONJUGATED 0.43 mg/dL (0.0-0.2); BILIRUBIN,UNCONJUGATED 0.59 mg/dL (0.0-0.6); CALCIUM 9.1 mg/dL (8.5-10.1); CREATININE SERUM 2.1 mg/dL (0.70-1.30); GFR 31.66; GLOBULINA 6.1 G/DL (2.4-3.5); POTASSIUM 4.45 mEq/L (3.5-5.1); TOTAL PROTEIN 8.6 gm/dL (6.4-8.2)
[2023-12-09 11:31] LABS: PH,URINE 5.5 (5.0-8.0); URINE APPEARANCE Turbid; URINE BILIRRUBIN Negative (NEGATIVE); URINE BLOOD Moderate; URINE COLOR Yellow; URINE GLUCOSE Negative (NEGATIVE); URINE KETONE Negative (NEGATIVE); URINE LEUKOCYTE Large; URINE NITRATE Negative; URINE UROBILINOGEN 0.2 E.U./dl
[2023-12-09 11:32] LABS: URINE RBC 26.1 uL (0.0-20.8)
[2023-12-09 11:33] LABS: URINE BACTERIA > 9821.5 uL (0.0-1933); URINE CAST 1.11 uL (0.0-1.40); URINE PROTEIN 100 (NEGATIVE); URINE WBC > 5548.3 uL (0.0-23.2)
[2023-12-09] MEDS ORDERED: 0.9 % SODIUM CHLORIDE 1,000 ML IV SCH (14:00)
[2023-12-09] MEDS ORDERED: levoFLOXacin IN DEXTROSE 5 % 5 MG/ML PIGGYBAG IV STA (14:03)
[2023-12-09] MEDS ORDERED: ONDANSETRON HCL 2 MG/ML VIAL IV PRN (14:15)
[2023-12-09] MEDS ORDERED: hydrALAZINE HCL 20 MG VIAL IV PRN (14:15)
[2023-12-09] MEDS ORDERED: LACTOBACILLUS ACIDOPHILUS 1 CAP CAP PO SCH (17:00)
[2023-12-09] MEDS ORDERED: ENOXAPARIN SODIUM 30 MG/0.3 ML SYRINGE SUBCUTANEO SCH (17:00)
[2023-12-09] MEDS ORDERED: FAMOTIDINE/PF 20 MG/2 ML VIAL IV PUSH SCH (21:00)
[2023-12-10 08:57] LABS: HEMATOCRIT 26.5 % (39.0-48.0); MEAN CELL VOLUME 80.9 fL (80.0-100.00); PLATELET COUNT 221 K/uL (150-450); RED BLOOD COUNT 3.28 M/uL (4.00-6.00); RED CELL DISTRIBUTION WIDTH 17.3 % (11.5-14.5)
[2023-12-10 08:58] LABS: MEAN CORPUSCULAR HEMOGLOBIN 27.4 pg (27.00-32.0)
[2023-12-10 09:39] LABS: ALBUMIN 2.2 gm/dL (3.4-5.0); BILIRUBIN TOTAL 0.54 mg/dL (0.3-1.2); CALCIUM 8.3 mg/dL (8.5-10.1); CREATININE SERUM 1.37 mg/dL (0.70-1.30); GFR 51.83; GLOBULINA 4.5 G/DL (2.4-3.5); MAGNESIUM 1.9 mg/dL (1.8-2.4); PHOSPHOROUS 4.2 mg/dL (2.5-4.9); POTASSIUM 4.38 mEq/L (3.5-5.1); TOTAL PROTEIN 6.7 gm/dL (6.4-8.2); TSH 2.64 uIU/mL (0.358-3.74)
[2023-12-10 09:41] LABS: C-REACTIVE PROTEIN 20.7 MG/DL (0.00-0.29)
[2023-12-10 09:42] LABS: ERYTHROCYTE SEDIMENTATION RATE > 130 mm/hr
[2023-12-10] MEDS ORDERED: SOD FERRIC GLUC COMPLX/SUCROSE 62.5 MG in 0.9 % SODIUM CHLORIDE 50 ML IV SCH (17:00)
[2023-12-10] MEDS ORDERED: Cyanocobalamin/Mecobalamin 1 TAB.SL SL SCH (17:00)
[2023-12-11 07:59] LABS: HEMATOCRIT 26.4 % (39.0-48.0); MEAN CELL VOLUME 82.6 fL (80.0-100.00); MEAN CORPUSCULAR HEMOGLOBIN 28.1 pg (27.00-32.0); PLATELET COUNT 221 K/uL (150-450); RED CELL DISTRIBUTION WIDTH 17.2 % (11.5-14.5)
[2023-12-11 08:23] LABS: CALCIUM 8.4 mg/dL (8.5-10.1); CREATININE SERUM 1.14 mg/dL (0.70-1.30); GFR 64.07; PHOSPHOROUS 3.3 mg/dL (2.5-4.9); POTASSIUM 4.06 mEq/L (3.5-5.1)
[2023-12-11] MEDS ORDERED: levoFLOXacin IN DEXTROSE 5 % 5 MG/ML PIGGYBAG IV SCH (09:00)
[2023-12-11] MEDS ORDERED: MEROPENEM 500 MG/VIAL VIAL IV SCH (09:00)
[2023-12-12] MEDS ORDERED: ENOXAPARIN SODIUM 40 MG/0.4 ML SYRINGE SUBCUTANEO SCH (17:00)
[2023-12-12] MEDS ORDERED: BUPIVACAINE HCL 30 ML VIAL IJ ONE (21:00)
[2023-12-12] MEDS ORDERED: IOVERSOL 320 MG/ML - 50 ML VIAL IV ONE (21:00)
[2023-12-13] MEDS ORDERED: CLOTRIMAZOLE 10 MG TROCHE MM SCH (13:00)
[2023-12-14 08:29] LABS: CALCIUM 8.5 mg/dL (8.5-10.1); CREATININE SERUM 0.94 mg/dL (0.70-1.30); GFR 80.05; MAGNESIUM 1.6 mg/dL (1.8-2.4); PHOSPHOROUS 2.9 mg/dL (2.5-4.9); POTASSIUM 4.04 mEq/L (3.5-5.1)
[2023-12-14 08:33] LABS: HEMATOCRIT 29.4 % (39.0-48.0); HEMOGLOBIN 9.8 g/dL (13-16.00); MEAN CELL VOLUME 83.9 fL (80.0-100.00); MEAN CORPUSCULAR HEMOGLOBIN 28.1 pg (27.00-32.0); MEAN CORPUSCULAR HGB CONC 33.5 g/dl (32.0-36.0); PLATELET COUNT 258 K/uL (150-450); RED CELL DISTRIBUTION WIDTH 17.6 % (11.5-14.5)
[2023-12-14] MEDS ORDERED: MAGNESIUM SULFATE IN WATER 50 ML IV NR (10:15)
[2023-12-15] MEDS ORDERED: FAMOtidine 20 MG TABLET PO SCH (09:00)
[2023-12-16] MEDS ORDERED: MEROPENEM 500 MG/VIAL VIAL IV SCH (18:00)
[2023-12-18 07:07] LABS: HEMATOCRIT 28.7 % (39.0-48.0); HEMOGLOBIN 9.7 g/dL (13-16.00); MEAN CORPUSCULAR HEMOGLOBIN 28.1 pg (27.00-32.0); MEAN CORPUSCULAR HGB CONC 33.9 g/dl (32.0-36.0); PLATELET COUNT 246 K/uL (150-450); RED BLOOD COUNT 3.45 M/uL (4.00-6.00); RED CELL DISTRIBUTION WIDTH 17.5 % (11.5-14.5)
[2023-12-18 07:26] LABS: BILIRUBIN TOTAL 0.52 mg/dL (0.3-1.2); CALCIUM 8.4 mg/dL (8.5-10.1); CREATININE SERUM 0.77 mg/dL (0.70-1.30); GFR 100.77; GLOBULINA 4.3 G/DL (2.4-3.5); MAGNESIUM 1.5 mg/dL (1.8-2.4); POTASSIUM 4.22 mEq/L (3.5-5.1); TOTAL PROTEIN 6.3 gm/dL (6.4-8.2)
[2023-12-18 07:28] LABS: C-REACTIVE PROTEIN 7.1 MG/DL (0.00-0.29)
[2023-12-18] MEDS ORDERED: MAGNESIUM CHLORIDE 70 MG TABLET.DR PO SCH (10:50)
[2023-12-18] MEDS ORDERED: MAGNESIUM SULFATE IN WATER 50 ML IV NR (11:00)
[2023-12-18] MEDS ORDERED: SOD FERRIC GLUC COMPLX/SUCROSE 62.5 MG in 0.9 % SODIUM CHLORIDE 50 ML IV SCH (17:00)
[2023-12-19] MEDS ORDERED: INTESTINEX680 M1 PO (11:53)
[2023-12-19] MEDS ORDERED: MAGNESIUM CHLOR70 MG PO (11:53)
[2023-12-19] MEDS ORDERED: FUSION PLUS CA1 EACH PO (11:53)
[2023-12-19] MEDS ORDERED: ABANEU-SL TABL1 EACH SL (11:53)
[2023-12-19] MEDS ORDERED: FAMOTIDINE20 MG PO (11:53)
== END 2023-12-19 14:42 | disposition home or self-care (01) | DRG 690 ==
LOC: ER 08:32 → MEDJ 14:25 → SEC-K 14:25 → MEDI 14:25 → MEDJ 12-11 10:53
PROVIDERS: Emergency Medicine; Internal Medicine Infectious Disease; Radiology Vascular & Interventional Radiology; ADMIT Internal Medicine Geriatric Medicine; ATTEND Internal Medicine Geriatric Medicine
PROC: B24BZZZ Ultrasonography of Heart with Aorta (ICD-10-PCS; 2023-12-11)
PROC: 0T25X0Z Change Drainage Device in Kidney, External Approach (ICD-10-PCS; principal; 2023-12-12 20:30)
DX: N39.0 Urinary tract infection, site not specified (principal); C20 Malignant neoplasm of rectum; C78.7 Secondary malignant neoplasm of liver and intrahepatic bile duct; N17.9 Acute kidney failure, unspecified; E87.1 Hypo-osmolality and hyponatremia; Z16.12 Extended spectrum beta lactamase (ESBL) resistance; C78.00 Secondary malignant neoplasm of unspecified lung; E86.0 Dehydration; D63.0 Anemia in neoplastic disease; I10 Essential (primary) hypertension; B96.1 Klebsiella pneumoniae [K. pneumoniae] as the cause of diseases classified elsewhere

== ENCOUNTER 2023-12-30 10:23 | Inpatient (IN) | payer OTHER ==
[~2023-12-30] VITALS: Ht 170.2 cm; Wt 72.6 kg
[~2023-12-30 10:23] MED LIST changes: +FAMOTIDINE20 MG PO; +INTESTINEX680 M1 PO
[2023-12-30] MEDS ORDERED: 0.9 % SODIUM CHLORIDE 1,000 ML IV SCH ×2 (11:15→14:00)
[2023-12-30 12:07] LABS: HEMATOCRIT 28.1 % (39.0-48.0); HEMOGLOBIN 9.5 g/dL (13-16.00); MEAN CELL VOLUME 83.5 fL (80.0-100.00); MEAN CORPUSCULAR HEMOGLOBIN 28.3 pg (27.00-32.0); MEAN CORPUSCULAR HGB CONC 33.9 g/dl (32.0-36.0); PLATELET COUNT 318 K/uL (150-450); RED BLOOD COUNT 3.36 M/uL (4.00-6.00); RED CELL DISTRIBUTION WIDTH 16.3 % (11.5-14.5)
[2023-12-30 12:50] LABS: CALCIUM 9.3 mg/dL (8.5-10.1); CREATININE SERUM 1.79 mg/dL (0.70-1.30); GFR 38.07; POTASSIUM 4.44 mEq/L (3.5-5.1)
[2023-12-30 13:36] LABS: PH,URINE 6.5 (5.0-8.0); URINE APPEARANCE Turbid; URINE BILIRRUBIN Negative (NEGATIVE); URINE BLOOD Small; URINE COLOR Yellow; URINE GLUCOSE Negative (NEGATIVE); URINE KETONE Negative (NEGATIVE); URINE LEUKOCYTE Large; URINE NITRATE Negative; URINE PROTEIN 30 (NEGATIVE); URINE UROBILINOGEN 0.2 E.U./dl
[2023-12-30 13:40] LABS: URINE CAST 3.32 uL (0.0-1.40); URINE EPITHELIAL CELLS 7.5 uL (0.0-38.8); URINE RBC 4.6 uL (0.0-20.8)
[2023-12-30 13:55] LABS: URINE BACTERIA > 9821.5 uL (0.0-1933); URINE WBC > 5548.3 uL (0.0-23.2)
[2023-12-30 13:56] LABS: URINE YEAST FEW /hpf
[2023-12-30] MEDS ORDERED: Cyanocobalamin/Mecobalamin 1 TAB.SL SL SCH (14:21)
[2023-12-30] MEDS ORDERED: ONDANSETRON HCL 2 MG/ML VIAL IV PRN (14:30)
[2023-12-30 15:40] VITALS: BP 103/67; O2SAT 99
[2023-12-30] MEDS ORDERED: ENOXAPARIN SODIUM 40 MG/0.4 ML SYRINGE SUBCUTANEO ONE (15:45)
[2023-12-30] MEDS ORDERED: LACTOBACILLUS ACIDOPHILUS 1 CAP CAP PO ONE (15:45)
[2023-12-30] MEDS ORDERED: SOD FERRIC GLUC COMPLX/SUCROSE 62.5 MG in 0.9 % SODIUM CHLORIDE 50 ML IV SCH (17:00)
[2023-12-30] MEDS ORDERED: MEROPENEM 500 MG/VIAL VIAL IV SCH (17:00)
[2023-12-30] MEDS ORDERED: LACTOBACILLUS ACIDOPHILUS 1 CAP CAP PO SCH (17:00)
[2023-12-30] MEDS ORDERED: ENOXAPARIN SODIUM 40 MG/0.4 ML SYRINGE SUBCUTANEO SCH (17:00)
[2023-12-30 18:34] VITALS: BP 92/67
[2023-12-30] MEDS ORDERED: FAMOTIDINE/PF 20 MG/2 ML VIAL IV PUSH SCH (21:00)
[2023-12-31 01:58] VITALS: BP 109/66
[2023-12-31 09:40] VITALS: BP 100/65; O2SAT 100
[2023-12-31 11:14] LABS: HEMATOCRIT 28.2 % (39.0-48.0); HEMOGLOBIN 9.5 g/dL (13-16.00); MEAN CELL VOLUME 84.2 fL (80.0-100.00); MEAN CORPUSCULAR HEMOGLOBIN 28.3 pg (27.00-32.0); MEAN CORPUSCULAR HGB CONC 33.6 g/dl (32.0-36.0); PLATELET COUNT 246 K/uL (150-450); RED BLOOD COUNT 3.35 M/uL (4.00-6.00); RED CELL DISTRIBUTION WIDTH 16.7 % (11.5-14.5)
[2023-12-31 11:51] LABS: BILIRUBIN TOTAL 0.47 mg/dL (0.3-1.2); CALCIUM 8.8 mg/dL (8.5-10.1); CREATININE SERUM 1.36 mg/dL (0.70-1.30); GFR 52.27; MAGNESIUM 1.9 mg/dL (1.8-2.4); PHOSPHOROUS 3.8 mg/dL (2.5-4.9); POTASSIUM 4.07 mEq/L (3.5-5.1)
[2023-12-31 11:54] LABS: C-REACTIVE PROTEIN 18.4 MG/DL (0.00-0.29)
[2023-12-31] MEDS ORDERED: VANCOMYCIN HCL 1,000 MG VIAL IV SCH (17:00)
[2023-12-31] MEDS ORDERED: AMINO ACIDS 1 EACH TABLET PO SCH (17:00)
[2023-12-31 22:21] VITALS: BP 106/63
[2024-01-01 03:14] VITALS: BP 103/66; O2SAT 99
[2024-01-01 08:39] LABS: HEMATOCRIT 24.1 % (39.0-48.0); MEAN CELL VOLUME 84.9 fL (80.0-100.00); MEAN CORPUSCULAR HEMOGLOBIN 28.5 pg (27.00-32.0); MEAN CORPUSCULAR HGB CONC 33.5 g/dl (32.0-36.0); PLATELET COUNT 249 K/uL (150-450); RED BLOOD COUNT 2.84 M/uL (4.00-6.00); RED CELL DISTRIBUTION WIDTH 16.6 % (11.5-14.5)
[2024-01-01 08:40] LABS: HEMOGLOBIN 8.1 g/dL (13-16.00)
[2024-01-01 09:13] VITALS: BP 97/68
[2024-01-01 09:30] LABS: CALCIUM 8.4 mg/dL (8.5-10.1); CREATININE SERUM 1.03 mg/dL (0.70-1.30); GFR 72.03; MAGNESIUM 1.8 mg/dL (1.8-2.4); POTASSIUM 4.07 mEq/L (3.5-5.1)
[2024-01-01 09:42] LABS: INR 1.22; PARTIAL THROMBOPLASTIN TIME 28.7 SECONDS (22.0-34.0); PROTHROMBIN TIME 13.1 SECONDS (9.0-11.5)
[2024-01-01] MEDS ORDERED: FUROsemide 20 MG/2 ML VIAL IV SCH (11:00)
[2024-01-01 13:33] LABS: ABG PH 7.457 (7.35-7.45); ABG PO2 107.5 mmHg (80-100); ABG pCO2 25.2 mmHg (35-45); BASE EXCESS -4.5 mmol/l; BICARBONATE 17.4 mmol/l (23-25); SaO2 98.4 %; Tco2 18.2 mmol/l
[2024-01-01 13:46] LABS: allen test SATISFACTORY; o2 21 %; puncture site RADIAL RIGHT
[2024-01-01] MEDS ORDERED: BUPIVACAINE HCL/MPF 0.5% 30ML VIAL ONE (15:59)
[2024-01-01] MEDS ORDERED: IOVERSOL 320 MG/ML - 50 ML VIAL IV ONE (16:00)
[2024-01-01 17:58] VITALS: BP 103/62
[2024-01-01] MEDS ORDERED: CHLORHEXIDINE GLUCONATE 120 ML BOTTLE TOP ONE (19:47)
[2024-01-02 01:32] VITALS: BP 110/66; O2SAT 100
[2024-01-02 06:04] VITALS: BP 106/63; O2SAT 97
[2024-01-02 09:14] VITALS: BP 108/66
[2024-01-02 17:33] VITALS: BP 126/72
[2024-01-02] MEDS ORDERED: MEROPENEM 500 MG/VIAL VIAL IV SCH (18:00)
[2024-01-02 18:09] LABS: HEMATOCRIT 36.4 % (39.0-48.0); HEMOGLOBIN 12.2 g/dL (13-16.00); MEAN CELL VOLUME 83.4 fL (80.0-100.00); MEAN CORPUSCULAR HGB CONC 33.6 g/dl (32.0-36.0); PLATELET COUNT 302 K/uL (150-450); RED BLOOD COUNT 4.36 M/uL (4.00-6.00); RED CELL DISTRIBUTION WIDTH 15.9 % (11.5-14.5)
[2024-01-02 18:27] LABS: ALBUMIN 2.1 gm/dL (3.4-5.0); BILIRUBIN TOTAL 0.56 mg/dL (0.3-1.2); CALCIUM 8.7 mg/dL (8.5-10.1); CREATININE SERUM 1.04 mg/dL (0.70-1.30); GFR 71.23; GLOBULINA 4.8 G/DL (2.4-3.5); MAGNESIUM 1.5 mg/dL (1.8-2.4); PHOSPHOROUS 2.9 mg/dL (2.5-4.9); POTASSIUM 4.21 mEq/L (3.5-5.1); TOTAL PROTEIN 6.9 gm/dL (6.4-8.2)
[2024-01-02] MEDS ORDERED: VANCOMYCIN HCL 1,000 MG VIAL IV SCH (21:00)
[2024-01-03 02:23] VITALS: BP 120/64; O2SAT 97
[2024-01-03 06:54] VITALS: BP 130/73; O2SAT 100
[2024-01-03] MEDS ORDERED: MAGNESIUM SULFATE IN WATER 50 ML IV NR (07:30)
[2024-01-03 09:14] VITALS: BP 105/67; O2SAT 99
[2024-01-03 19:07] VITALS: BP 105/65
[2024-01-03] MEDS ORDERED: FAMOtidine 20 MG TABLET PO SCH (21:00)
[2024-01-04 03:44] VITALS: BP 124/76; O2SAT 97
[2024-01-04 10:12] VITALS: BP 105/74
[2024-01-04] MEDS ORDERED: FLUCONAZOLE IN NACL,ISO-OSM 100 MG/50 ML PIGGYBAG IV STA (14:27)
[2024-01-04 19:12] VITALS: BP 135/83; O2SAT 100
[2024-01-05 00:04] VITALS: BP 130/74; O2SAT 98
[2024-01-05 02:12] VITALS: BP 124/79; O2SAT 95
[2024-01-05] MEDS ORDERED: [UNRECOGNIZED DRUG - OTHER] IV SCH (09:00)
[2024-01-05] MEDS ORDERED: FLUCONAZOLE IN NACL,ISO-OSM 100 MG/50 ML PIGGYBAG IV SCH (09:00)
[2024-01-05] MEDS ORDERED: IRON FUM,PS/FOLIC ACID/VITC/B3 1 CAP CAPSULE PO SCH (09:00)
[2024-01-05 09:31] VITALS: BP 115/84
[2024-01-05 20:31] VITALS: BP 122/77; O2SAT 97
[2024-01-06 01:58] VITALS: BP 115/68; O2SAT 100
[2024-01-06 09:45] VITALS: BP 118/76
[2024-01-06 16:00] VITALS: BP 120/76
[2024-01-06 21:00] VITALS: BP 110/70
[2024-01-07 02:38] VITALS: BP 113/71
[2024-01-07 09:40] LABS: MEAN CELL VOLUME 85.2 fL (80.0-100.00); MEAN CORPUSCULAR HEMOGLOBIN 28.4 pg (27.00-32.0); MEAN CORPUSCULAR HGB CONC 33.3 g/dl (32.0-36.0); PLATELET COUNT 301 K/uL (150-450); RED BLOOD COUNT 3.87 M/uL (4.00-6.00); RED CELL DISTRIBUTION WIDTH 15.6 % (11.5-14.5)
[2024-01-07 09:47] VITALS: BP 111/70; O2SAT 98
[2024-01-07 10:58] LABS: ALBUMIN 1.8 gm/dL (3.4-5.0); BILIRUBIN TOTAL 0.57 mg/dL (0.3-1.2); CALCIUM 8.1 mg/dL (8.5-10.1); CREATININE SERUM 0.77 mg/dL (0.70-1.30); GFR 100.77; GLOBULINA 4.2 G/DL (2.4-3.5); POTASSIUM 3.5 mEq/L (3.5-5.1)
[2024-01-07 11:00] LABS: MAGNESIUM 1.4 mg/dL (1.8-2.4)
[2024-01-07] MEDS ORDERED: MAGNESIUM SULFATE IN WATER 50 ML IV NR (12:30)
[2024-01-07] MEDS ORDERED: MAGNESIUM CHLORIDE 70 MG TABLET.DR PO SCH (17:00)
[2024-01-07 18:50] VITALS: BP 117/74; O2SAT 97
[2024-01-08 02:00] VITALS: BP 115/69
[2024-01-08 09:04] VITALS: BP 109/71
[2024-01-08 18:17] VITALS: BP 114/78; O2SAT 98
[2024-01-08] MEDS ORDERED: MELATONIN 5 MG TABLET PO SCH (21:00)
[2024-01-09 02:00] VITALS: BP 109/69
[2024-01-09 09:24] VITALS: BP 104/69
[2024-01-09] MEDS ORDERED: PRE PROTEIN1 EACH PO (12:24)
[2024-01-09] MEDS ORDERED: INTEGRA F CAPS1 EACH PO (12:24)
[2024-01-09] MEDS ORDERED: INTESTINEX680 M1 PO (12:24)
[2024-01-09] MEDS ORDERED: ABANEU-SL TABL1 EACH SL (12:24)
[2024-01-09] MEDS ORDERED: FAMOTIDINE20 MG PO (12:24)
[2024-01-09] MEDS ORDERED: FLUCONAZOLE100 MG PO (12:24)
== END 2024-01-09 16:22 | disposition home or self-care (01) | DRG 699 ==
LOC: ER 10:23 → MEDJ 14:57
PROVIDERS: Emergency Medicine; Radiology Vascular & Interventional Radiology; Specialist; ADMIT Internal Medicine Geriatric Medicine; ATTEND Internal Medicine Geriatric Medicine
PROC: 0T25X0Z Change Drainage Device in Kidney, External Approach (ICD-10-PCS; principal; 2024-01-01 18:00)
PROC: 30233N1 Transfusion of Nonautologous Red Blood Cells into Peripheral Vein, Percutaneous Approach (ICD-10-PCS; 2024-01-02)
DX: N99.522 Malfunction of incontinent external stoma of urinary tract (principal); C20 Malignant neoplasm of rectum; C78.00 Secondary malignant neoplasm of unspecified lung; E87.1 Hypo-osmolality and hyponatremia; N17.9 Acute kidney failure, unspecified; N39.0 Urinary tract infection, site not specified; Z16.12 Extended spectrum beta lactamase (ESBL) resistance; C78.7 Secondary malignant neoplasm of liver and intrahepatic bile duct; I10 Essential (primary) hypertension; E86.0 Dehydration; D64.9 Anemia, unspecified; F43.20 Adjustment disorder, unspecified; B96.1 Klebsiella pneumoniae [K. pneumoniae] as the cause of diseases classified elsewhere; B95.2 Enterococcus as the cause of diseases classified elsewhere